=== PATIENT | male | born 1945 | race Caucasian/White ===

== ENCOUNTER 2017-10-12 15:29 | Emergency (ER) | payer BC, OTHER ==
[~2017-10-12] VITALS: Ht 175.3 cm; Wt 76.8 kg
[~2017-10-12 15:29] MED LIST: ASPI-232 PO; ATOR-22 PO; CHOL100040 PO; GLUCTAB7 PO; HYDR-3419 PO; MULT-513 PO; OMEGCAP2 PO; POLYSOL4 OPL; coQ10 PO
[2017-10-12 15:35] VITALS: TEMP 36.4; Ht 175.3 cm; Wt 76.8 kg
[2017-10-12] MEDS ORDERED: ONDANSETRON INJ 2 MG/ML 2 ML VIAL IV STA (16:03)
[2017-10-12] MEDS ORDERED: MoRPHine SULFATE 4 MG/ML 1 ML CARP\\VIAL IV PRN (16:15)
[2017-10-12] MEDS ORDERED: COEN75CA PO (16:33)
[2017-10-12 16:48] LABS: BASO % 0.1 %; BASO ABS # 0.01 K/uL (0-0.2); COMPLETE YES; EOS % 0.5 %; HEMATOCRIT 44.9 % (42-52); IG% 0.1 %; LYMPH % 8.8 %; LYMPH ABS # 0.69 K/uL (1.2-3.4); MEAN CELL VOLUME 91.6 fL (80-100); MEAN CORPUSCULAR HEMOGLOBIN 30.8 pg (25-34); MEAN CORPUSCULAR HGB CONC 33.6 g/dl (32-36); MEAN PLATELET VOLUME 10.4 fL (7.4-10.4); MONO % 4.5 %; PLATELET COUNT 207 K/uL (130-400); WHITE BLOOD COUNT 7.86 K/uL (4.8-10.8)
[2017-10-12 16:49] LABS: BUN/CREATININE RATIO 20.4 (10-20); CALCIUM 8.8 mg/dl (8.5-10.1); CREATININE 1.25 mg/dl (0.60-1.40); POTASSIUM 4.3 mmol/L (3.5-5.1)
--- NOTE | 2017-10-12 17:14 | DIAGNOSTIC IMAGING REPORT ---
CT SCAN OF THE ABDOMEN AND PELVIS WITHOUT IV CONTRAST CLINICAL HISTORY: Right flank pain. COMPARISON STUDY: KUB dated 11/26/2013. TECHNIQUE: CT scan of the abdomen and pelvis is performed from the lung bases to the proximal femora. Images are reviewed in the axial, sagittal, and coronal planes. IV contrast was not administered for this examination. A dose lowering technique was utilized adhering to the principles of ALARA. CT DOSE: 556.57 mGy.cm FINDINGS: Lung bases: The heart is top normal in size and without pericardial effusion. The lung bases are clear noting dependent atelectasis. There is a small hiatal hernia. Liver: The unenhanced liver is normal in size, contour, and attenuation. There is no intrahepatic biliary ductal dilatation. A 1.6 cm cyst is noted. Additional subcentimeter hepatic hypodensities also likely represent cysts but are too small for definitive characterization. Gallbladder: Unremarkable. Spleen: Normal in size and attenuation. A 2.0 cm cystic lesion in the spleen is seen on image #113. This is doubtful significance. Pancreas: The unenhanced pancreas is mildly atrophic and grossly unremarkable. Adrenal glands: Unremarkable. Kidneys: The unenhanced kidneys are atrophic. There is a 6 mm obstructing calculus in the distal right ureter seen on image #366. This is located approximately 1 cm above the vesicoureteral junction and causes mild right hydroureteronephrosis. There is associated right-sided perinephric and periureteric stranding. 2 additional nonobstructing right renal calculi measuring up to 4 mm. There are least 4 nonobstructing left renal calculi measuring up to 7 mm. There is no left-sided hydronephrosis. A 2.8 cm cyst is noted on the right. Abdominal vasculature: The abdominal aorta is normal in course and caliber noting moderate atherosclerotic calcification. Bowel: A small duodenal diverticulum is incidentally noted. No bowel obstruction is seen. The appendix is well-visualized and normal. Peritoneum: There is no intraperitoneal free air or abdominal ascites. There is a small fat-containing umbilical hernia. Lymphadenopathy: None. Pelvic viscera: The the prostate gland is enlarged and heterogeneous, measuring 5.4 cm in transverse time. There is median lobe hypertrophy. The bladder is normal as visualized. Skeletal structures: The skeletal structures are osteopenic. There is [id number] lumbosacral spondylosis. No lytic or blastic lesions are seen. IMPRESSION: 1. There is a 6 mm obstructing calculus in the distal right ureter approximately 1 cm above the vesicoureteral junction. This causes mild right hydroureteronephrosis. 2. Additional bilateral nonobstructing calculi are present in both kidneys. 3. Additional findings as above. Electronically signed by: Indio Arzate M.D. 10/12/2017 5:12 PM Dictated Date/Time: 10/12/2017 5:05 PM
[2017-10-12] MEDS ORDERED: HYDR-5688 PO (17:38)
[2017-10-12] MEDS ORDERED: ONDA4TAB10 SL (17:38)
[2017-10-12] MEDS ORDERED: NORCO 5/325MG HOME PACK PO ONE (17:45)
[2017-10-12] MEDS ORDERED: ONDANSETRON HOME PACK 4MG OD TAB PO ONE (17:45)
[2017-10-12 17:59] LABS: URINE APPEARANCE CLEAR (CLEAR); URINE BILIRUBIN NEG (NEG); URINE COLOR YELLOW; URINE EPITHELIAL CELL AUTO 20-30 /lpf (0-5); URINE NITRITE NEG (NEG); URINE SPECIFIC GRAVITY 1.022 (1.000-1.030); UROBILINOGEN NEG (NEG); ZZUR CULT IF INDIC CLEAN CATCH NO
[2017-10-12 18:00] LABS: MANUAL MICROSCOPIC REQUIRED? NO; REVIEW REQ? NO
[2017-10-12 18:41] VITALS: BP 152/80; PULSE 64; O2SAT 96
--- NOTE | 2017-10-12 19:15 | EMERGENCY ROOM VISIT NOTE ---
History Report prepared by Britany: Lizeth Lezama Under the Supervision of: Dr. Sumeet iVllarreal M.D. First contact with patient: 15:34 Chief Complaint: FLANK PAIN Stated Complaint: BACK PAIN History of Present Illness The patient is a 72 year old male who presents to the Emergency Room with complaints of gradually worsening right flank pain starting yesterday. The patient reports that it started out as a "twinge." He reports that it felt like the start of a kidney stone except this was more gradual. He reports that he went for his three mile morning run and he states it was fine. He reports that after a little it started to increase and he ate a chicken sandwich. He reports that after eating it came back worse. The patient states that moving makes it worse. He states that at its worst his pain was a 10/10 in severity, but currently is a 3/10 in severity. The patient complains of vomiting. Pt denies LOC, headache, fevers, chills, diaphoresis, visual changes, neck pain , chest pain, breathing difficulties, nausea, abdominal pain, melena, hematochezia, urinary symptoms, numbness, weakness, lymphadenopathy, rash, or other complaints. Source of History: patient Onset: yesterday Position: other (right flank) Symptom Intensity: 3/10 Timing: worsening, other (gradually) Associated Symptoms: + vomiting Review of Systems See HPI for pertinent positives and negatives. A total of ten systems were reviewed and were otherwise negative. Past Medical & Surgical Medical Problems: (1) Kidney stones Surgical Problems: (1) History of shoulder surgery (2) History of tonsillectomy (3) Hx of appendectomy Family History FHx: kidney disease/stones Social History Smoking Status: Never Smoker Alcohol Use: occasionally Marital Status: Housing Status: lives with significant other Occupation Status: retired Current/Historical Medications Scheduled Aspirin (Aspir-81), 81 MG PO DAILY Atorvastatin (Lipitor), 20 MG PO DAILY Cholecalciferol (Vitamin D-1000), 1,000 UNIT(INT) PO DAILY Coenzyme Q10 (Ubidecarenone) (Co Q-10), 1 CAP PO DAILY [place]-Njgiescvuss-Kvo C- (Glucosamine Chondroitin), 1 TAB PO DAILY [place]-3 Fatty Acids (Fish Oil), 1,000 MG PO DAILY Ondasetron Odt (Zofran Odt), 4 MG SL Q6H Scheduled PRN Hydrocodone/Acetaminophen 5MG/325MG ([place] 5MG/325MG), 1-2 TABS PO Q6H PRN for Pain Polyethylene Glycol-Propylene (Systane), 1 DROP OPL for md order Allergies Uncoded Allergies: EYE NUMBING DROPS (Allergy, Unknown, EYE SORENESS, SWELLING, 10/12/17) Physical Exam Vital Signs Date Time Temp Pulse Resp B/P (MAP) Pulse Ox O2 Delivery O2 Flow Rate FiO2 10/12/17 18:41 64 18 152/80 96 10/12/17 17:31 61 18 134/68 98 Room Air 10/12/17 15:35 36.4 62 20 152/75 100 Room Air Physical Exam GENERAL: Awake, alert, well-appearing, in no distress HENT: Normocephalic, atraumatic. Oropharynx unremarkable. EYES: Normal conjunctiva. Sclera non-icteric. NECK: Supple. No nuchal rigidity. FROM. No JVD. RESPIRATORY: Clear to auscultation. CARDIAC: Regular rate, normal rhythm. Extremities warm and well perfused. Pulses equal. ABDOMEN: Soft, non-distended. No tenderness to palpation. No rebound or guarding. No masses. RECTAL: Deferred. MUSCULOSKELETAL: Chest examination reveals no tenderness. The back is symmetrical on inspection without obvious abnormality. There is mild right CVA tenderness to palpation. No joint edema. LOWER EXTREMITIES: Calves are equal size bilaterally and non-tender. No edema. No discoloration. NEURO: Normal sensorium. No sensory or motor deficits noted. SKIN: No rash or jaundice noted. Medical Decision & Procedures ER Provider Diagnostic Interpretation: Radiology results as stated below per my review and radiologist interpretation: CT SCAN OF THE ABDOMEN AND PELVIS WITHOUT IV CONTRAST CLINICAL HISTORY: Right flank pain. COMPARISON STUDY: KUB dated 11/26/2013. TECHNIQUE: CT scan of the abdomen and pelvis is performed from the lung bases to the proximal femora. Images are reviewed in the axial, sagittal, and coronal planes. IV contrast was not administered for this examination. A dose lowering technique was utilized adhering to the principles of ALARA. CT DOSE: 556.57 mGy.cm FINDINGS: Lung bases: The heart is top normal in size and without pericardial effusion. The lung bases are clear noting dependent atelectasis. There is a small hiatal hernia. Liver: The unenhanced liver is normal in size, contour, and attenuation. There is no intrahepatic biliary ductal dilatation. A 1.6 cm cyst is noted. Additional subcentimeter hepatic hypodensities also likely represent cysts but are too small for definitive characterization. Gallbladder: Unremarkable. Spleen: Normal in size and attenuation. A 2.0 cm cystic lesion in the spleen is seen on image #113. This is doubtful significance. Pancreas: The unenhanced pancreas is mildly atrophic and grossly unremarkable. Adrenal glands: Unremarkable. Kidneys: The unenhanced kidneys are atrophic. There is a 6 mm obstructing calculus in the distal right ureter seen on image #366. This is located approximately 1 cm above the vesicoureteral junction and causes mild right hydroureteronephrosis. There is associated right-sided perinephric and periureteric stranding. 2 additional nonobstructing right renal calculi measuring up to 4 mm. There are least 4 nonobstructing left renal calculi measuring up to 7 mm. There is no left-sided hydronephrosis. A 2.8 cm cyst is noted on the right. Abdominal vasculature: The abdominal aorta is normal in course and caliber noting moderate atherosclerotic calcification. Bowel: A small duodenal diverticulum is incidentally noted. No bowel obstruction is seen. The appendix is well-visualized and normal. Peritoneum: There is no intraperitoneal free air or abdominal ascites. There is a small fat-containing umbilical hernia. Lymphadenopathy: None. Pelvic viscera: The the prostate gland is enlarged and heterogeneous, measuring 5.4 cm in transverse time. There is median lobe hypertrophy. The bladder is normal as visualized. Skeletal structures: The skeletal structures are osteopenic. There is [id number] lumbosacral spondylosis. No lytic or blastic lesions are seen. IMPRESSION: 1. There is a 6 mm obstructing calculus in the distal right ureter approximately 1 cm above the vesicoureteral junction. This causes mild right hydroureteronephrosis. 2. Additional bilateral nonobstructing calculi are present in both kidneys. 3. Additional findings as above. Electronically signed by: Indio Arzate M.D. 10/12/2017 5:12 PM Dictated Date/Time: 10/12/2017 5:05 PM Laboratory Results 10/12/17 16:18 Red Blood Count 4.90, Mean Corpuscular Volume 91.6, Mean Corpuscular Hemoglobin 30.8, Mean Corpuscular Hemoglobin Concent 33.6, Mean Platelet Volume 10.4, Neutrophils (%) (Auto) 86.0, Lymphocytes (%) (Auto) 8.8, Monocytes (%) (Auto) 4.5, Eosinophils (%) (Auto) 0.5, Basophils (%) (Auto) 0.1, Neutrophils # (Auto) 6.76, Lymphocytes # (Auto) 0.69, Monocytes # (Auto) 0.35, Eosinophils # (Auto) 0.04, Basophils # (Auto) 0.01 10/12/17 16:18 Test 10/12/17 16:15 10/12/17 16:18 Urine Color YELLOW Urine Appearance CLEAR (CLEAR) Urine pH 7.0 (4.5-7.5) Urine Specific [place] 1.022 (1.000-1.030) Urine Protein NEG (NEG) Urine Glucose (UA) NEG (NEG) Urine Ketones NEG (NEG) Urine Occult Blood 3+ (NEG) Urine Nitrite NEG (NEG) Urine Bilirubin NEG (NEG) Urine Urobilinogen NEG (NEG) Urine Leukocyte Esterase TRACE (NEG) Urine WBC (Auto) 1-5 /hpf (0-5) Urine RBC (Auto) >30 /hpf (0-4) Urine Hyaline Casts (Auto) 1-5 /lpf (0-5) Urine Epithelial Cells (Auto) 20-30 /lpf (0-5) Urine Bacteria (Auto) NEG (NEG) White Blood Count 7.86 K/uL (4.8-10.8) Red Blood Count 4.90 M/uL (4.7-6.1) Hemoglobin 15.1 g/dL (14.0-18.0) Hematocrit 44.9 % (42-52) Mean Corpuscular Volume 91.6 fL (80-100) Mean Corpuscular Hemoglobin 30.8 pg (25-34) Mean Corpuscular Hemoglobin Concent 33.6 g/dl (32-36) Platelet Count 207 K/uL (130-400) Mean Platelet Volume 10.4 fL (7.4-10.4) Neutrophils (%) (Auto) 86.0 % Lymphocytes (%) (Auto) 8.8 % Monocytes (%) (Auto) 4.5 % Eosinophils (%) (Auto) 0.5 % Basophils (%) (Auto) 0.1 % Neutrophils # (Auto) 6.76 K/uL (1.4-6.5) Lymphocytes # (Auto) 0.69 K/uL (1.2-3.4) Monocytes # (Auto) 0.35 K/uL (0.11-0.59) Eosinophils # (Auto) 0.04 K/uL (0-0.5) Basophils # (Auto) 0.01 K/uL (0-0.2) RDW Standard Deviation 41.8 fL (36.4-46.3) RDW Coefficient of Variation 12.4 % (11.5-14.5) Immature Granulocyte % (Auto) 0.1 % Immature Granulocyte # (Auto) 0.01 K/uL (0.00-0.02) Anion Gap 4.0 mmol/L (3-11) Est Creatinine Clear Calc Drug Dose 55.0 ml/min Estimated GFR () 67.2 Estimated GFR (Non- 58.0 BUN/Creatinine Ratio 20.4 (10-20) Calcium Level 8.8 mg/dl (8.5-10.1) Total Bilirubin 1.1 mg/dl (0.2-1) Direct Bilirubin 0.3 mg/dl (0-0.2) Aspartate Amino Transf (AST/SGOT) 19 U/L (15-37) Alanine Aminotransferase (ALT/SGPT) 24 U/L (12-78) Alkaline Phosphatase 99 U/L (45-117) Total Protein 7.2 gm/dl (6.4-8.2) Albumin 3.8 gm/dl (3.4-5.0) Lipase 153 U/L (73-393) Laboratory results reviewed by me Medications Administered Medications (Trade) Dose Ordered Sig/Lori Route Start Time Stop Time Status Last Admin Dose Admin Ondansetron HCl (Zofran Inj) 4 mg NOW STAT IV 10/12/17 16:03 10/12/17 16:04 DC 10/12/17 16:33 4 MG Morphine Sulfate (MoRPHine SULFATE INJ) 4 mg Q15M PRN IV 10/12/17 16:15 10/12/17 18:59 DC 10/12/17 16:34 4 MG Acetaminophen/ Hydrocodone Bitart ([place] 5/325mg Home Pack) 1 homepack UD ONCE PO 12/3/17 17:45 10/12/17 17:46 DC 10/12/17 18:30 1 HOMEPACK Ondansetron HCl (ZOFRAN ODT 4MG Home Pack) 1 homepack UD ONCE PO 10/12/17 17:45 10/12/17 17:46 DC 10/12/17 18:29 1 HOMEPACK ED Course 1601: The patient was evaluated in room B6. A complete history and physical exam was performed. 1603: Ordered Zofran Inj 4 mg IV. 1615: Ordered Morphine Sulfate 4 mg PRN IV pain. 1719: I reevaluated the patient and he is doing well. Discussed results and discharge instructions: He verbalized understanding and agreement. The patient is ready for discharge. 1745: Ordered Ondansetron HCl 1 homepack PO, Hydrocodone Bitart/ Acetaminophen 1 homepack PO. Medical Decision Prior records/ancillary studies reviewed. Triage Nursing notes reviewed and agree them. Additional history obtained from the family. The patient's history was concerning for flank and abdominal pain. Differential diagnosis: Etiologies such as renal colic, appendicitis, diverticulitis, mesenteric ischemia, aortic pathology, infections, inflammatory bowel disease, PUD, biliary pathology, UTI, as well as others were entertained. Physical examination findings: As above. ER treatment provided: IV Zofran IV morphine On reassessment the patient felt better. Diagnostic interpretation by me: The labs revealed an unremarkable CBC and chemistry panel. Urinalysis revealed hematuria. There was no sign of UTI. Imaging studies: CT of the abdomen and pelvis as above. It appears that the patient has isolated renal colic from a right sided stone. He is doing very well at this time. He'll need close follow-up with urology. If he worsens in any way he will be back.I gave my usual and customary discussion regarding this issue. By the evaluation outlined above emergent etiologies such as appendicitis, diverticulitis, mesenteric ischemia, aortic pathology, infections, inflammatory bowel disease, PUD, biliary pathology, UTI, as well as others were deemed relatively unlikely. The patient and were informed about the findings as listed above. All questions were answered and they were pleased with the treatment. Return instructions were outlined and the patient was discharged in stable condition. Outpatient prescription management: Reynaldo Gunn Referral: The pt was referred to [facility] for follow up care regarding their stone. Medication Reconcilliation Current Medication List: was personally reviewed by me Blood Pressure Screening Patient's blood pressure: Elevated blood pressure Blood pressure disposition: Elevated BP felt to be situational Impression Primary Impression: Ureterolithiasis Scribe Attestation The scribe's documentation has been prepared under my direction and personally reviewed by me in its entirety. I confirm that the note above accurately reflects all work, treatment, procedures, and medical decision making performed by me. Departure Information Dispostion Home / Self-Care Prescriptions Ondasetron Odt (ZOFRAN ODT) 4 Mg Tab 4 MG SL Q6H for Nausea, #6 TAB Prov: Sumeet Villarreal MD 10/12/17 Hydrocodone/Acetaminophen 5MG/325MG ([place] 5MG/325MG) Tab 1-2 TABS PO Q6H Y for Pain, #14 TAB Prov: Sumeet Villarreal MD 10/12/17 Referrals Sumeet Beckford III, M.D. (PCP) Forms HOME CARE DOCUMENTATION FORM, IMPORTANT VISIT INFORMATION Patient Instructions My [facility] Additional Instructions KIDNEY STONE INSTRUCTIONS: Hydrocodone/acetaminophen 5/325mg: Take 1-2 pills every 6 hours as needed for pain. Avoid additional Acetaminophen/Tylenol, alcohol, operating machinery or dangerous equipment, working on ladders or roofs, DRIVING, or situations where being under the influence may be dangerous. It is recommended to use a stool softener such as Colace, 100mg twice daily while taking this medication to avoid constipation. Zofran 4 mg oral dissolving tablets: take one tablet and allow it to melt in your mouth every 4 hours as needed for nausea. Ibuprofen(Motrin, Advil) may be used for fever or pain. Use 600mg every six hours as needed. Take with food. Avoid using more than 2400mg in a 24 hour period. Do not use 2400mg per day for more than three consecutive days without physician direction. Prolonged inappropriate use can lead to stomach upset or ulcers. This medication can be taken if you need to drive, work, or perform activities which may be dangerous when taking narcotic pain medication. Strain your urine and collect all the stones or debris for the urologists. Rest and avoid strenuous activity until your stone passes and symptoms resolve. Drink plenty of fluids. Return to the ER for worsening abdominal or back pain, vomiting, fevers, passing out, or as needed. Follow up with [facility] tomorrow, [phone], to arrange a visit.
== END 2017-10-12 18:43 | disposition home or self-care (01) ==
LOC: EDBD 15:29 → C.EDB 15:30
DX: N20.1 Calculus of ureter (principal); Z87.442 Personal history of urinary calculi; Z79.82 Long term (current) use of aspirin; Z79.899 Other long term (current) drug therapy